=== PATIENT | female | born 1985 | race Caucasian/White ===

== ENCOUNTER 2022-03-16 22:42 | Emergency (ER) | payer BC ==
[~2022-03-16] VITALS: Ht 180.3 cm; Wt 62.6 kg
--- NOTE | 2022-03-16 23:40 | NUR ---
PT TAKEN FOR CT SCAN
--- NOTE | 2022-03-16 23:40 | NUR ---
BIBS. HEADACHE X 6 MONTH. RR EVEN AND NONLABORED. ALERT AND ORIENTED. CONNECTED TO POX AND HEART MONITOR. AWAITING MD IYER
--- NOTE | 2022-03-17 00:45 | NUR ---
Patient does not wish to proceed with medical care recommended by Dr. Hay. Patient given information related to possible complications, up to and including , which could occur as a result of leaving the hospital at this time. Patient verbalizes understanding of risks involved due to leaving against medical advice. Patient has signed AMA form.
[2022-03-17 00:49] VITALS: BP 121/80
== END 2022-03-17 00:50 | disposition left against medical advice (07) ==
LOC: ER 22:45
DX: R51.9 Headache, unspecified (principal); G89.29 Other chronic pain
CPT/HCPCS: 70450-TC